=== PATIENT | female | born 1960 | race American Indian/Alaskan Native ===

== ENCOUNTER 2018-07-03 18:59 | Emergency (ER) | payer OTHER ==
[2018-07-03 19:13] VITALS: O2SAT 100
--- NOTE | 2018-07-03 19:39 | C.PDOC ---
History Of Present Illness 58 year old female presents to the ER with a complaint of abdominal pain intermittently since last week that has worsened today. Patient was [place] [facility] [place] but claims she was not seen by a provider. She has a Hx of gastri tis but states the pain feels different than her usual gastritis. Patient went to see her PMD last week but was unable to be seen. She notes she usually has gastritis flare ups approximately every 6 months and normally takes pepcid for it as needed. Denies fever, chills, nausea, or vomiting. Patient has a Hx of tubal ligation years ago. Time Seen by Provider: 07/03/18 19:21 Chief Complaint (Nursing): Abdominal Pain History Per: Patient History/Exam Limitations: no limitations Onset/Duration Of Symptoms: Days Current Symptoms Are (Timing): Still Present Location Of Pain/Discomfort: Periumbilical Radiation Of Pain To:: None Quality Of Discomfort: Unable To Describe Associated Symptoms: denies: Fever, Chills, Nausea, Vomiting Exacerbating Factors: None Alleviating Factors: None Recent travel outside of the [place]: No Abnormal Vaginal Bleeding: No Past Medical History Reviewed: Historical Data, Nursing Documentation, Vital Signs Vital Signs: Last Vital Signs Temp 98.0 F 07/03/18 19:11 Pulse 83 07/03/18 19:11 Resp 16 07/03/18 19:11 BP 187/118 H 07/03/18 19:11 Pulse Ox 100 07/03/18 19:11 - Medical History PMH: Back Problems (Herniated Disc), Deep Vein Thrombosis (lt leg), Gastritis, HTN Denies: Chronic Kidney Disease - [facility] Procedures CORONAR ARTERIOGR-2 CATH (05/09/15) ESOPHAGOGASTRODUODENOSCOPY [EGD] W/CLOSED BIOPSY (05/09/15) LEFT HEART CARDIAC CATH (05/09/15) LT HEART ANGIOCARDIOGRAM (05/09/15) Family History: States: Unknown Family Hx - Social History Hx Tobacco Use: Yes (5 cigarettes daily) Hx Alcohol Use: Yes Hx Substance Use: Yes (Cocaine weeks ago) - Immunization History Hx Tetanus Toxoid Vaccination: Yes Hx Influenza Vaccination: Yes Hx Pneumococcal Vaccination: No Review Of Systems Except As Marked, All Systems Reviewed And Found Negative. Constitutional: Negative for: Fever, Chills Cardiovascular: Negative for: Chest Pain, Palpitations Respiratory: Negative for: Cough, Shortness of Breath Gastrointestinal: Positive for: Abdominal Pain. Negative for: Nausea, Vomiting Neurological: Negative for: Weakness, Numbness Physical Exam - Physical Exam Appears: Non-toxic, Other (Moderate distress) Skin: Normal Color, Warm, Dry Head: Atraumatic, Normacephalic Eye(s): bilateral: Normal Inspection Oral Mucosa: Moist Neck: Normal, Supple Chest: Symmetrical, No Tenderness Cardiovascular: Rhythm Regular Respiratory: Normal Breath Sounds, No Rales, No Rhonchi, No Wheezing Gastrointestinal/Abdominal: Soft, Tenderness (Mild periumbilical), No Guarding, No Rebound Back: No CVA Tenderness Neurological/Psych: Oriented x3, Normal Speech ED Course And Treatment - Laboratory Results Result Diagrams: 07/03/18 20:00 07/03/18 20:00 O2 Sat by Pulse Oximetry: 100 (Room air) Pulse Ox Interpretation: Normal - CT Scan/US Dissection Protocol CT Other Rad Studies (CT/US): Read By Radiologist, Radiology Report Reviewed CT/US Interpretation: CLINICAL HISTORY: Rule out dissection. AAA. COMPARISON: Correlation is made with prior chest CT dated 05/13/2015. TECHNIQUE: Multiple axial, coronal, sagittal CT images were obtained through the chest, abdomen and pelvis with IV contrast material. The study was performed as per CT angiogram protocol. Visipaque 320/100 ml. DLP 2385.11. COMMENTS: No evidence of aortic dissection or aneurysm. The aorta is essentially unremarkable except for mild atherosclerotic changes. There is no evidence of pleural or parenchymal mass. There are no pleural effusions. There is no ev idence of hilar or mediastinal lymphadenopathy. Specifically, there is no evidence for paratracheal and supraclavicular adenopathy. There is no evidence for a chest or abdominal wall nodule or mass. The heart and great vessels are within normal limits. There is scattered upper lobes predominant centrilobular emphysema present. The liver is of uniform attenuation without mass or defect. The gallbladder is within normal limits. There is no intrahepatic or extrahepatic biliary ductal dilatation. The spleen is normal. The pancreas is of normal contour and attenuation characteristics. There is no evidence of adrenal mass. Both kidneys demonstrate prompt and equal nephrograms. The kidne ys are normal in size, shape and configuration. There is no evidence of renal mass. There is no hydroureter or hydronephrosis. There is 12 mm cyst present in the lower pole of the right kidney. Small hiatal hernia is present. There is no bowel wall thickening. No evidence for small or large bowel obstruction. There is no evidence of abdominal ascites or lymphadenopathy. The uterus and ovaries are unremarkable. There is no evidence of intrinsic or extrinsic bladder mass. There is no pelvic ascites or lymphadenopathy. The bony structures are free of lytic or blastic lesions. IMPRESSION: 1. No evidence of aortic dissection or aneurysm. The aorta is essentially unremarkable except for mild atherosclerotic changes. 2. Scattered upper lobes predominant centrilobular emphysema. 3. Small hiatal hernia. Progress - Re-Evaluation Re-evaluation Note: 07/03/18 22:27 169/80, SLEEPING APPEARS COMFORTABLE. VS IMPROVED FROM PRIOR. CT REPORT REVIEWED. DC, FU PMD. PT AWARE OF FINDINGS AND AGREES W PLAN - Data Reviewed Data Reviewed: Lab, Diagnostic imaging, EKG, Old records Medical Decision Making Medical Decision Making: Plan: * CT chest/abd/pelvis * EKG * Blood work * Urinalysis * Morphine * Pepcid * Protonix * Zofran Disposition Counseled Patient/Family Regarding: Studies Performed, Diagnosis, Need For Followup, Rx Given - Disposition Referrals: YOUR,PMD [Other] Disposition: HOME/ ROUTINE Disposition Time: 22:27 Condition: IMPROVED Prescriptions: Atropine/Hyoscyamine [] 1 tab PO TID #12 tab Nitrofurantoin Macrocrystals [Macrobid] 1 cap PO BID #14 cap Instructions: Gastritis (DC) Forms: [facility] (Fijian), Work Excuse - Clinical Impression Clinical Impression: Abdominal pain - Scribe Statement The provider has reviewed the documentation as recorded by the Scribramón Tyler All medical record entries made by the Scribe were at my direction and personally dictated by me. I have reviewed the chart and agree that the record accurately reflects my personal performance of the history, physical exam, medical decision making, and the department course for this patient. I have also personally directed, reviewed, and agree with the discharge instructions and disposition.
[2018-07-03 20:05] VITALS: RESP 18; TEMP 98.9
[2018-07-03 20:05] LABS: BASO # 0.1 K/uL (0.0-0.2); EOS % 0.6 % (0.0-4.0); LYMPH # 1.5 K/uL (1.0-4.3); LYMPH % 22.2 % (20.0-40.0); MEAN CELL VOLUME 87.9 fL (81.0-99.0); MEAN CORPUSCULAR HEMOGLOBIN 29.6 pg (27.0-31.0); MEAN CORPUSCULAR HGB CONC 33.6 g/dL (33.0-37.0); MEAN PLATELET VOLUME 6.8 fL (7.2-11.7); MONO # 0.2 K/uL (0.0-0.8); MONO % 3.1 % (0.0-10.0); NEUT % 73.1 % (50.0-75.0); RBC 4.95 Mil/uL (3.80-5.20); RED CELL DISTRIBUTION WIDTH 13.5 % (11.5-14.5); WHITE BLOOD COUNT 6.9 K/uL (4.8-10.8)
[2018-07-03 20:12] LABS: SQUAMOUS EPITHIAL 57 /hpf (0-5); URINE BACTERIA MOD (<OCC); URINE BILIRUBIN NEGATIVE (NEGATIVE); URINE BLOOD NEGATIVE (NEGATIVE); URINE CLARITY Hazy (Clear); URINE COLOR Yellow (YELLOW); URINE GLUCOSE (UA) NORMAL (Normal); URINE LEUKOCYTE ESTERASE 1+ Leu/uL (Negative); URINE PROTEIN 1+ mg/dL (NEGATIVE); URINE UROBILINOGEN NORMAL mg/dL (0.2-1.0)
[2018-07-03 20:20] LABS: HEMOGLOBIN 14.6 g/dL (11.0-16.0)
[2018-07-03] MEDS ORDERED: cefTRIAXone IV 1 gm in Dextros 50 ML IV STA (20:20)
[2018-07-03 20:56] LABS: ALB/GLOB RATIO 1.1 (1.0-2.1); ALBUMIN 4.3 g/dL (3.5-5.0); ALT/SGPT 19 U/L (9-52); AST/SGOT 19 U/L (14-36); BLOOD UREA NITROGEN 11 mg/dL (7-17); CALCIUM 9.8 mg/dl (8.6-10.4); GFR NON-AFRICAN AMERICAN > 60; LIPASE 37 U/L (23-300)
[2018-07-03] MEDS ORDERED: Iohexol 300 100 ML IJ ONE (21:42)
[2018-07-03] MEDS ORDERED: Belladonna-Phenobarbital PO STA (22:26)
[2018-07-03] MEDS ORDERED: Belladonna-Phenobarbital ONE (22:33)
[2018-07-03 22:41] VITALS: BP 169/89; PULSE 59
--- NOTE | 2018-07-04 11:00 | CT ---
Date of service: 07/03/[address] Indication: abd pain HTN RO DISSECTION/AAA Comparison: CTA chest performed 05/13/15 Technique: Contrast dose: 100 mL Visipaque 320 IV Total exam DLP: 2385.11 Axial computed tomographic angiogram images of the chest and abdomen were performed after bolus administration of IV contrast. Sagittal and coronal reformatted images were generated and reviewed. This CT exam was performed using 1 or more of the falling dose reduction techniques: Automated exposure control, adjustment of the MAA and/or kV according to patient size, and/or use of iterative reconstruction technique. Findings: Visualized portions of the inferior thyroid gland appear unremarkable. The mediastinal and hilar vascular structures appear within normal limits. The heart appears within normal limits of size. Minimal scattered atherosclerotic calcification of the aorta present. Sub cm mediastinal lymph nodes, nonspecific. No large central pulmonary embolus evident. Centrilobular emphysema. No focal consolidation. No pleural effusion. No pneumothorax. No suspicious pulmonary nodules measuring greater than 5 mm. There is normal course and contour of the abdominal aorta and common iliac arteries. The celiac artery origin, superior mesenteric artery origin, inferior mesenteric artery, and bilateral renal artery origins appear widely patent. Small hiatal hernia. The liver appears within normal limits of size and morphology. The pancreas, spleen, adrenal glands, and gallbladder appear unremarkable. The kidneys enhance symmetrically without evidence of hydronephrosis or obstructing renal calculi. 12 mm right renal hypodense mass measures approximately 7 HU on noncontrast images consistent with a cyst. No bulky adenopathy identified. Lack of oral contrast limits evaluation for bowel pathology. Visualized bowel loops appear within normal limits of caliber without evidence of obstruction. The appendix is absent with surgical clips at the base of the cecum consistent with appendectomy. Correlate with surgical history. No inflammatory changes are seen in the right lower quadrant to suggest acute appendicitis. No definite free air. The uterus is present. Small fat containing umbilical hernia. No significant pelvic free fluid is identified. No acute osseous abnormality is identified. Impression: No evidence of aortic aneurysm or dissection. Mild centrilobular emphysema. Nonspecific small bowel wall thickening of jejunal loops; correlate for possibility of enteritis. Additional incidental findings as above. Preliminary impression was provided by [employer]. Study marked for PA review.
== END 2018-07-03 22:45 | disposition home or self-care (01) ==
LOC: C.ER 18:59
DX: R10.33 Periumbilical pain (principal)
CPT/HCPCS: 71275; 74175; 80053; 81001; 83690; 84484; 85025; 87086; 96374; 96375; 99285; C9113; J0696; J2270; J2405; Q9967

== ENCOUNTER 2019-01-30 18:39 | Emergency (ER) | payer OTHER ==
[2019-01-30 18:55] VITALS: RESP 18
--- NOTE | 2019-01-30 21:09 | C.PDOC ---
History Of Present Illness 59 year old female presents with right sided lateral elbow pain onset this morning. Patient has not taken any pain medications and states the pain radiates down her arm and feels "swollen". She denies any numbness,tingling, trauma, injury, or repetitive movements. Time Seen by Provider: 01/30/19 19:21 Chief Complaint (Nursing): Upper Extremity Problem/Injury History Per: Patient History/Exam Limitations: no limitations Onset/Duration Of Symptoms: Hrs Current Symptoms Are (Timing): Still Present Quality: "Pain" Recent travel outside of the [place]: No Additional History Per: Patient Past Medical History Reviewed: Historical Data, Nursing Documentation, Vital Signs Vital Signs: Last Vital Signs Temp 98.2 F 01/30/19 18:54 Pulse 76 01/30/19 18:54 Resp 18 01/30/19 18:54 BP 184/92 H 01/30/19 18:54 Pulse Ox 99 01/30/19 18:54 Primary Care Provider: Freddie Dugan - Medical History PMH: Back Problems (Herniated Disc), Deep Vein Thrombosis (lt leg), Gastritis, HTN Denies: Chronic Kidney Disease Surgical History: No Surg Hx - [facility] Procedures CORONAR ARTERIOGR-2 CATH (05/09/15) ESOPHAGOGASTRODUODENOSCOPY [EGD] W/CLOSED BIOPSY (05/09/15) LEFT HEART CARDIAC CATH (05/09/15) LT HEART ANGIOCARDIOGRAM (05/09/15) Family History: States: Unknown Family Hx - Social History Hx Tobacco Use: Yes (5 cigarettes daily) Hx Alcohol Use: Yes Hx Substance Use: Yes (Cocaine weeks ago) - Immunization History Hx Tetanus Toxoid Vaccination: Yes Hx Influenza Vaccination: Yes Hx Pneumococcal Vaccination: No Review Of Systems Constitutional: Negative for: Fever, Chills Musculoskeletal: Positive for: Arm Pain (right elbow pain ). Negative for: Neck Pain, Back Pain Skin: Negative for: Rash, Lesions Neurological: Negative for: Weakness, Numbness, Other (tingling ) Physical Exam - Physical Exam Appears: Non-toxic, Other (crying, in pain) Skin: Warm, Dry Head: Atraumatic, Normacephalic Eye(s): bilateral: Normal Inspection Extremity: No Normal ROM (Decreased ROM of right elbow secondary to pain. Full ROM of hand and fingers. ), Tenderness (tenderness to right lateral epicondyle area, no erythema or warmth noted. no swelling. mild hand swelling, non tender ) Pulses: Left Radial: Normal, Right Radial: Normal Neurological/Psych: Oriented x3, Normal Speech, Normal Cognition, Normal Sensation ED Course And Treatment O2 Sat by Pulse Oximetry: 99 (on RA) Pulse Ox Interpretation: Normal Medical Decision Making Medical Decision Making: Plan: Xray Rt Elbow Tylenol 975mg PO Toradol 30mg IM Cas Bandage applied Xray reviewed. Neg. Patient with decreased pain after Tylenol and Toradol Cas Bandage applied to elbow and patient discharged home, f/u ortho. pt is hypertensive, has not yet taken evening dose of blood pressure medication. Disposition - Disposition Referrals: Mickey Colby III, MD [Staff Provider] - Disposition: HOME/ ROUTINE Disposition Time: 21:25 Condition: GOOD Additional Instructions: Follow up with your doctor and with Dr Colby from orthopedics in next 1-2 days. Wear Cas bandage for comfort. Take Ibuprofen for pain. Cold compresses to elbow several times a day. Keep arm elevated when possible. Ibuprofen for pain. Have your blood pressure checked in 1-2 days. Prescriptions: Ibuprofen [Motrin] 600 mg PO TID #30 tab Instructions: Lateral Epicondylitis (DC) Forms: General Discharge Instructions, [facility] (Guinean) - Clinical Impression Clinical Impression: Lateral epicondylitis of right elbow - PA / INVESTMENT PROFESSIONAL / Resident Statement MD/DO has reviewed & agrees with the documentation as recorded. - Scribe Statement The provider has reviewed the documentation as recorded by the Christina Sevilla All medical record entries made by the Ricciibramón were at my direction and personally dictated by me. I have reviewed the chart and agree that the record accurately reflects my personal performance of the history, physical exam, medical decision making, and the department course for this patient. I have also personally directed, reviewed, and agree with the discharge instructions and disposition.
--- NOTE | 2019-01-30 21:22 | C.PDOC ---
Time Seen by Provider: 01/30/19 19:21 Chief Complaint (Nursing): Upper Extremity Problem/Injury Past Medical History Vital Signs: Last Vital Signs Temp 98.2 F 01/30/19 18:54 Pulse 76 01/30/19 18:54 Resp 18 01/30/19 18:54 BP 184/92 H 01/30/19 18:54 Pulse Ox 99 01/30/19 18:54 Primary Care Provider: Freddie Dugan - Medical History PMH: Back Problems (Herniated Disc), Deep Vein Thrombosis (lt leg), Gastritis, HTN Denies: Chronic Kidney Disease - [facility] Procedures CORONAR ARTERIOGR-2 CATH (05/09/15) ESOPHAGOGASTRODUODENOSCOPY [EGD] W/CLOSED BIOPSY (05/09/15) LEFT HEART CARDIAC CATH (05/09/15) LT HEART ANGIOCARDIOGRAM (05/09/15) Family History: States: Unknown Family Hx - Social History Hx Tobacco Use: Yes (5 cigarettes daily) Hx Alcohol Use: Yes Hx Substance Use: Yes (Cocaine weeks ago) - Immunization History Hx Tetanus Toxoid Vaccination: Yes Hx Influenza Vaccination: Yes Hx Pneumococcal Vaccination: No ED Course And Treatment O2 Sat by Pulse Oximetry: 99 Disposition - Disposition Referrals: Mickey Colby III, MD [Staff Provider] - Disposition: HOME/ ROUTINE Disposition Time: 21:22 Condition: GOOD Additional Instructions: Follow up with your doctor and with Dr Colby from orthopedics in next 1-2 days. Wear Cas bandage for comfort. Take Ibuprofen for pain. Cold compresses to elbow several times a day. Keep arm elevated when possible. Ibuprofen for pain. Have your blood pressure checked in 1-2 days. Prescriptions: Ibuprofen [Motrin] 600 mg PO TID #30 tab Instructions: Lateral Epicondylitis (DC) Forms: [facility] (Mongolian), General Discharge Instructions - Clinical Impression Clinical Impression: Lateral epicondylitis of right elbow
[2019-01-30 21:29] VITALS: BP 171/90; PULSE 81; TEMP 98.6
--- NOTE | 2019-01-31 17:05 | RAD ---
PROCEDURE: Radiographs of the right elbow. Three views. HISTORY: lateral pain, no trauma COMPARISON: None available. FINDINGS: BONES: No acute displaced fracture. JOINTS: No dislocation. SOFT TISSUES: Unremarkable. No evidence of radiopaque foreign body. JOINT EFFUSION: No significant joint effusion. OTHER FINDINGS: None IMPRESSION: No acute displaced fracture, dislocation, or significant joint effusion identified. If symptoms persist, or if there is continued clinical concern, x-ray follow-up in 7-10 days should be considered.
[2019-02-02 07:40] VITALS: O2SAT 99
== END 2019-01-30 21:28 | disposition home or self-care (01) ==
LOC: C.ER 18:39
DX: M77.11 Lateral epicondylitis, right elbow (principal)
CPT/HCPCS: 73080; 96372; 99284; J1885